=== PATIENT | male | born 1955 | race Caucasian/White ===

== ENCOUNTER 2017-06-15 23:38 | Emergency (ER) | payer OTHER ==
[~2017-06-15] VITALS: Ht 190.5 cm; Wt 122.5 kg
--- NOTE | 2017-06-15 23:43 | ED GI/GU/ABDOMINAL COMPLAINT ---
History of Present Illness General Chief Complaint: Nausea, Vomiting, Diarrhea Stated Complaint: NAUSEA Source: patient Exam Limitations: no limitations Vital Signs & Intake/Output Vital Signs & Intake/Output Vital Signs Date Time Temp Pulse Resp B/P B/P Pulse O2 O2 Flow FiO2 Mean Ox Delivery Rate 06/16 0155 96.7 77 18 129/65 99 Room Air 06/15 2357 98 06/15 2345 96.3 79 18 136/74 99 Room Air ED Intake and Output 06/16 0000 06/15 1200 Intake Total Output Total Balance Patient 270 lb Weight Weight Reported by Patient Measurement Method Allergies Coded Allergies: NO KNOWN ALLERGIES (11/04/11) Reconcile Medications Omeprazole Magnesium (Prilosec Otc) 20 MG TABLET.DR 1 TAB PO DAILY STOMACH BURNING Ondansetron (Zofran Odt) 4 MG TAB.RAPDIS 1 TAB SL TID PRN nausea Oseltamivir Phosphate (Tamiflu) 75 MG CAPSULE 1 CAP PO BID influenza Triage Nurses Notes Reviewed? yes Onset: Gradual Duration: day(s):, waxing and waning Timing: recent history Quality/Severity: cramping Location: generalized abdomen Radiation: no radiation Activities at Onset: none Modifying Factors: Worsens With: defecating, vomiting. Associated Symptoms: diarrhea, nausea/vomiting HPI: 62 yo gentleman on humira for psoriatic arthritis, presents with 5 days of nausea, vomiting, diarrhea. "I was dry heaving tonight... and had real bad diarrhea yesterday." He notes mild cough with scant phlegm. He notes a fever 3 days ago, none since. No dysuria, chest pain, diaphoresis, rigors/chills. Past History Travel History Traveled to [place] past 21 day No Medical History Any Pertinent Medical History? see below for history Neurological: NONE EENT: NONE Cardiovascular: hypertension Respiratory: NONE Gastrointestinal: NONE Hepatic: NONE Renal: NONE Musculoskeletal: psoariatic arthritis Psychiatric: NONE Endocrine: NONE Blood Disorders: NONE Cancer(s): NONE STEAMING CABINET TENDER/Reproductive: NONE Tetanus Vaccine: 09/02/14 Surgical History Surgical History: none Psychosocial History What is your primary language Icelandic Family History Hx Contributory? No Review of Systems Review of Systems Constitutional: Reports: no symptoms. EENTM: Reports: no symptoms. Respiratory: Reports: no symptoms. Cardiovascular: Reports: no symptoms. GI: Reports: no symptoms. Genitourinary: Reports: no symptoms. Musculoskeletal: Reports: no symptoms. Skin: Reports: no symptoms. Neurological/Psychological: Reports: no symptoms. Hematologic/Endocrine: Reports: no symptoms. Immunologic/Allergic: Reports: no symptoms. All Other Systems: Reviewed and Negative Physical Exam Physical Exam General Appearance: well developed/nourished, mild distress Head: atraumatic, normal appearance Eyes: Bilateral: normal appearance. Ears, Nose, Throat, Mouth: hearing grossly normal, moist mucous membrane Neck: normal inspection, supple, full range of motion Respiratory: normal breath sounds, chest non-tender, no respiratory distress, quiet respiration, lungs clear Cardiovascular: regular rate/rhythm Gastrointestinal: normal bowel sounds, soft, non-tender, no organomegaly Back: normal inspection, normal range of motion Extremities: normal range of motion Neurologic/Psych: no motor/sensory deficits, awake, alert, oriented x 3 Skin: intact, normal color, warm/dry Core Measures ACS in differential dx? No Sepsis Present: No Sepsis Focused Exam Completed? No Progress Differential Diagnosis: appy, viral syndrome, pneumonia vs other. Plan of Care: Orders Procedure Date/time Status RAPID VIRAL INFLUENZA A 06/16 0011 Complete TROPONIN LEVEL 06/15 2341 Complete LIPASE 06/15 2341 Complete HEPATIC FUNCTION PANEL 06/15 2341 Complete CBC WITHOUT DIFFERENTIAL 06/15 2341 Complete BASIC METABOLIC PANEL 06/15 2341 Complete AMYLASE 06/15 2341 Complete EKG 06/15 2341 Active Laboratory Tests 06/15/17 2354: Anion Gap 13, Estimated GFR > 60, BUN/Creatinine Ratio 28.6 H, Glucose 155 H, Calcium 9.6, Total Bilirubin 0.4, Direct Bilirubin 0.2, AST 31, ALT 56, Alkaline Phosphatase 51, Troponin I < 0.01, Total Protein 6.9, Albumin 4.2, Amylase 64, Lipase 90, CBC w Diff NO MAN DIFF REQ, RBC 4.90, MCV 85.5, MCH 29.7, MCHC 34.8, RDW 12.4, MPV 7.8, Gran % 50.1, Lymphocytes % 36.6, Monocytes % 11.3 H, Eosinophils % 1.5, Basophils % 0.5, Absolute Granulocytes 2.3, Absolute Lymphocytes 1.7, Absolute Monocytes 0.5, Absolute Eosinophils 0.1, Absolute Basophils 0 Microbiology 06/16 0022 NASOPHARYN: Influenza Virus A & B Rapid Smear - COMP INFLUENZA TYPE B Diagnostic Imaging: Viewed by Me: Radiology Read, CT Scan. Discussed w/RAD: Radiology Read, CT Scan. Radiology Impression: PATIENT: YASMIN GIRALDO PRESENT AGE: 62 PATIENT ACCOUNT NO: [id number] : 56 LOCATION: [facility] ORDERING PHYSICIAN: Octavio Gonzalez MD SERVICE DATE: 06/16/17 EXAM TYPE: CAT - CT ABD & PELVIS W/O IV CONTRAS EXAMINATION: CT ABDOMEN AND PELVIS WITHOUT CONTRAST CLINICAL INFORMATION: Nausea. Diarrhea. COMPARISON: None TECHNIQUE: Multidetector volumetric imaging was performed from the superior aspect of the liver through the pubic symphysis. Sagittal and coronal reformatted images were obtained on the technologist's workstation. DLP: 1190 mGy-cm FINDINGS: LUNG BASES: The visualized lung bases are clear. Coronary artery calcifications are present. LIVER, GALLBLADDER, AND BILIARY TREE: The liver is normal in size and shape with decreased attenuation. No focal hepatic lesion or biliary ductal dilatation is present. The gallbladder is unremarkable with no evidence of radiopaque gallstones, gallbladder wall thickening, or obvious pericholecystic inflammatory changes. PANCREAS: Unremarkable. SPLEEN: Unremarkable. ADRENAL GLANDS: Unremarkable. KIDNEYS AND URETERS: The kidneys are normal in size, shape, and attenuation. No hydronephrosis, hydroureter, or calculi seen. No perinephric stranding. BLADDER: Unremarkable. GASTROINTESTINAL TRACT: There is wall thickening of the distal esophagus. The stomach is unremarkable. The small bowel is normal in caliber without obstruction. Normal appendix. Mild wall thickening is seen at the rectum. No additional evidence of colonic wall thickening. No free air or free fluid. ABDOMINAL WALL: No significant hernia is appreciated. LYMPH NODES: Normal. VASCULAR: Normal caliber aorta with mild atherosclerotic calcifications. PELVIC VISCERA: The prostate and seminal vesicles are unremarkable. OSSEOUS STRUCTURES: No acute or suspicious osseous abnormality. Bilateral L5 pars defects. Grade 1 anterolisthesis of L5 on S1 with disc space narrowing and vacuum disc phenomenon. IMPRESSION: 1. Wall thickening of the rectum may represent proctitis. 2. Distal esophageal wall thickening noted, which could be associated with esophagitis. 3. Hepatic steatosis. DICTATED BY: Bill CINTRON,Terrell DATE/TIME DICTATED:06/16/1751 DISTRICT ADMINISTRATIVE ASSISTANT:CODY DATE/TIME TRANSCRIBED:06/16/1751 CONFIDENTIAL, DO NOT COPY WITHOUT APPROPRIATE AUTHORIZATION. <Electronically signed in Other Vendor System> SIGNED BY: Terrell Khan MD 06/16/1757 CXR Impression: PATIENT: YASMIN GIRALDO PRESENT AGE: 62 PATIENT ACCOUNT NO: [id number] : 56 LOCATION: [facility] ORDERING PHYSICIAN: Octavio Gonzalez MD SERVICE DATE: 06/16/17 EXAM TYPE: RAD - XRY-CHEST XRAY, TWO VIEWS EXAMINATION: XR CHEST CLINICAL INFORMATION: Cough, phlegm, fever COMPARISON: CT performed 11/04/2011 TECHNIQUE: 2 views of the chest were obtained. FINDINGS: The lungs are well expanded. There is no focal consolidation, edema, or effusion. Mild bronchial wall thickening present. No pneumothorax. The cardiomediastinal silhouette is within normal limits. No acute osseous abnormality. Mild degenerative changes of the spine. IMPRESSION: No dense consolidation. Bronchial wall thickening can be seen with a small airways process such as asthma or atypical/viral infection. DICTATED BY: Terrell Khan MD DATE/TIME DICTATED:06/16/17110 DISTRICT ADMINISTRATIVE ASSISTANT: CODY DATE/TIME TRANSCRIBED:06/16/17110 CONFIDENTIAL, DO NOT COPY WITHOUT APPROPRIATE AUTHORIZATION. <Electronically signed in Other Vendor System> SIGNED BY: Terrell Khan MD 06/16/17114 Initial ED EKG: inferior borderline q's. nsr, no acute changes. Departure Departure Disposition: HOME OR SELF CARE Condition: Stable Clinical Impression Primary Impression: Nausea & vomiting Secondary Impressions: Influenza, Proctitis Referrals: Christopher CINTRON,Israel Wells (PCP/Family) Departure Forms: Customer Survey General Discharge Information Prescriptions: Current Visit Scripts Oseltamivir Phosphate (Tamiflu) 1 CAP PO BID #10 CAP Ondansetron (Zofran Odt) 1 TAB SL TID PRN nausea #10 TAB Omeprazole Magnesium (Prilosec Otc) 1 TAB PO DAILY #30 TAB Ref 1 Comments pt feels better after supportive medications.... influenza positive. ct scan suggestive of esophagitis and procticits... I believe the proctitis is likely functional and not bacterial. Esophagitis to be treated with prilosec. pt prescribed tamiful. close follow up advised.
[2017-06-16 00:17] LABS: ABSOLUTE BASOPHIL COUNT 0 /CUMM (0.0-0.2); ABSOLUTE EOSINOPHIL COUNT 0.1 /CUMM (0.0-0.7); ABSOLUTE GRANULOCYTE CT 2.3 /CUMM (1.4-6.5); ABSOLUTE LYMPH COUNT 1.7 /CUMM (1.2-3.4); ABSOLUTE MONOCYTE COUNT 0.5 /CUMM (0.10-0.60); BASOPHIL % 0.5 % (0.0-2.0); EOSINOPHIL % 1.5 % (0-5); GRANULOCYTE % 50.1 % (42.2-75.2); HEMATOCRIT 41.9 % (42-52); MEAN CORPUSCULAR HGB 29.7 PG (27.0-31.0); MEAN CORPUSCULAR HGB CONC 34.8 G/DL (33.0-37.0); MEAN CORPUSCULAR VOLUME 85.5 FL (80.0-94.0); MEAN PLATELET VOLUME 7.8 FL (7.4-10.4); PLATELET COUNT 179 /CUMM (130-400); RBC DISTRIBUTION WIDTH 12.4 % (11.5-14.5); WHITE BLOOD CELL COUNT 4.6 /CUMM (4.8-10.8)
[2017-06-16] MEDS ORDERED: TAMIFLU75 M1 PO (00:49)
[2017-06-16] MEDS ORDERED: ZOFRAN ODT4 M1 SL (00:49)
--- NOTE | 2017-06-16 00:58 | CT SCAN REPORT ---
EXAMINATION: CT ABDOMEN AND PELVIS WITHOUT CONTRAST CLINICAL INFORMATION: Nausea. Diarrhea. COMPARISON: None TECHNIQUE: Multidetector volumetric imaging was performed from the superior aspect of the liver through the pubic symphysis. Sagittal and coronal reformatted images were obtained on the technologist's workstation. DLP: 1190 mGy-cm FINDINGS: LUNG BASES: The visualized lung bases are clear. Coronary artery calcifications are present. LIVER, GALLBLADDER, AND BILIARY TREE: The liver is normal in size and shape with decreased attenuation. No focal hepatic lesion or biliary ductal dilatation is present. The gallbladder is unremarkable with no evidence of radiopaque gallstones, gallbladder wall thickening, or obvious pericholecystic inflammatory changes. PANCREAS: Unremarkable. SPLEEN: Unremarkable. ADRENAL GLANDS: Unremarkable. KIDNEYS AND URETERS: The kidneys are normal in size, shape, and attenuation. No hydronephrosis, hydroureter, or calculi seen. No perinephric stranding. BLADDER: Unremarkable. GASTROINTESTINAL TRACT: There is wall thickening of the distal esophagus. The stomach is unremarkable. The small bowel is normal in caliber without obstruction. Normal appendix. Mild wall thickening is seen at the rectum. No additional evidence of colonic wall thickening. No free air or free fluid. ABDOMINAL WALL: No significant hernia is appreciated. LYMPH NODES: Normal. VASCULAR: Normal caliber aorta with mild atherosclerotic calcifications. PELVIC VISCERA: The prostate and seminal vesicles are unremarkable. OSSEOUS STRUCTURES: No acute or suspicious osseous abnormality. Bilateral L5 pars defects. Grade 1 anterolisthesis of L5 on S1 with disc space narrowing and vacuum disc phenomenon. IMPRESSION: 1. Wall thickening of the rectum may represent proctitis. 2. Distal esophageal wall thickening noted, which could be associated with esophagitis. 3. Hepatic steatosis.
--- NOTE | 2017-06-16 01:15 | RADIOLOGY REPORT ---
EXAMINATION: XR CHEST CLINICAL INFORMATION: Cough, phlegm, fever COMPARISON: CT performed 11/04/2011 TECHNIQUE: 2 views of the chest were obtained. FINDINGS: The lungs are well expanded. There is no focal consolidation, edema, or effusion. Mild bronchial wall thickening present. No pneumothorax. The cardiomediastinal silhouette is within normal limits. No acute osseous abnormality. Mild degenerative changes of the spine. IMPRESSION: No dense consolidation. Bronchial wall thickening can be seen with a small airways process such as asthma or atypical/viral infection.
[2017-06-16] MEDS ORDERED: PRILOSEC OTC20 M1 PO (01:41)
[2017-06-16 01:55] VITALS: BP 129/65
== END 2017-06-16 01:56 ==
LOC: ERH 23:38
PROVIDERS: Pediatrics
DX: J11.1 Influenza due to unidentified influenza virus with other respiratory manifestations (principal); K62.89 Other specified diseases of anus and rectum; R11.2 Nausea with vomiting, unspecified
CPT/HCPCS: 71046; 74176; 87804; 87804-59; 93005; 93010; 96361; 96374; 96375; J2405; J2550